=== PATIENT | female | born 2000 | race Caucasian/White ===

== ENCOUNTER 2021-05-22 14:51 | Outpatient (CLI) | payer OTHER ==
[2021-05-22 18:43] LABS: ALBUMIN 3.1 g/dL (3.2-5.5); ALBUMIN/GLOBULIN RATIO 0.8 (1.0-2.2); BILIRUBIN,TOTAL 0.9 mg/dL (0.2-1.0); CALCIUM 8.9 mg/dL (8.5-10.3); CREATININE 0.7 mg/dL (0.4-1.0); POTASSIUM 3.9 mmol/L (3.5-5.0)
== END 2021-05-22 14:52 | disposition home or self-care (01) ==
LOC: LAB.N 14:51
PROVIDERS: ATTEND Obstetrics & Gynecology
DX: L29.9 Pruritus, unspecified (principal)
CPT/HCPCS: 36415; 80053; 82239

== ENCOUNTER 2021-05-27 05:11 | Inpatient (IN) | payer OTHER ==
[2021-05-27] MEDS ORDERED: LACTATED RINGERS 1,000 ML ONE (05:36)
[2021-05-27] MEDS ORDERED: LACTATED RINGERS 1,000 ML IV ONE (05:40)
[2021-05-27] MEDS ORDERED: ONDANSETRON ODT 4 MG TABLET TL PRN (05:51)
[2021-05-27] MEDS ORDERED: LACTATED RINGERS 500 ML IV ONE (05:51)
[2021-05-27] MEDS ORDERED: ONDANSETRON 4 MG/2 ML VIAL IVP PRN (05:51)
[2021-05-27] MEDS ORDERED: SODIUM CHLORIDE FLUSH 0.9% 10 ML SYRINGE IVP PRN ×2 (05:51→08:49)
[2021-05-27] MEDS ORDERED: BETAMETHASONE 30 MG/5 ML VIAL IM ONE (05:51)
[2021-05-27 06:15] LABS: ALBUMIN 3.1 g/dL (3.2-5.5); ALBUMIN/GLOBULIN RATIO 0.8 (1.0-2.2); CALCIUM 8.6 mg/dL (8.5-10.3); CREATININE 0.6 mg/dL (0.4-1.0); POTASSIUM 3.9 mmol/L (3.5-5.0); TOTAL PROTEIN 6.8 g/dL (6.7-8.2)
[2021-05-27 06:27] LABS: BASOPHILS % (AUTO) 0.3 %; EOSINOPHILS % (AUTO) 0.4 %; HCT - HEMATOCRIT 34.3 % (37.0-47.0); LYMPHOCYTES # (AUTO) 1.3 10^3/uL (1.5-3.5); LYMPHOCYTES % (AUTO) 12.2 %; MEAN CORPUSCULAR HEMOGLOBIN 32.4 pg (27.0-31.0); MEAN CORPUSCULAR VOLUME 92.7 fL (81.0-99.0); MEAN PLATELET VOLUME 10.3 fL (7.9-10.8); MONOCYTES # (AUTO) 0.6 10^3/uL (0.0-1.0); MONOCYTES % (AUTO) 5.5 %; NEUTROPHILS # (AUTO) 8.5 10^3/uL (1.5-6.6); NEUTROPHILS % (AUTO) 80.3 %; PLT - PLATELET COUNT 227 10^3/uL (130-450); RED CELL DISTRIBUTION WIDTH 12.4 % (12.0-15.0); WHITE BLOOD COUNT 10.6 x10^3/uL (4.8-10.8)
--- NOTE | 2021-05-27 06:48 | HISTORY & PHYSICAL EXAMINATION ---
Admit History - Visit Reason Visit Reason: Contractions, Bleeding - mild - : 1 Parity: 0 Care: positive: Other Complications This : positive: Other (shortened cervix, cholestasis of ) - Mother's Labs Mother's Blood Type: positive: O Mother's RH: positive: Positive GBS: positive: Other (pending) Rubella Status: positive: Immune - Other Maternal History Other Maternal History: ID: Patient is a 20 yo at 34+6 wga here with contractions and vaginal bleeding also with new dx of cholestasis of , now with cervical change. HPI: Dating is by LMP at 16 weeks us. Patient reports that contractions started at approximately 11:00 am yesterday am. She contacted the presentation specialist provider at about 4:00 reporting worsening c ramping and passage of several small clots. No active/patricia bleeding. No LOF. No recent intercourse. She reported pruritus at her 05/15/21 visit and Patient was a recent transfer of care to [facility] with first and only visit on 05/15/21. [facility] was [facility]) and then at [facility] before transferring to [facility]. At her 32 week visit, she reported pruritus and BA and LFTs were sent. BA returned elevated at 135 and ALT and ALST were also elevated at 155 and 88. Ursodiol not started prior to presentation as BA results were not yet fully processed. Glucose 105. Denies hx of HSV. GBS collected at intake. No prior pregnancies. Pap wnl 04/03/21 Menarche 13 , menses Q28-30. PNC: DATING: LMP 09/25/20 --> CHIOMA 07/02/21 US on 01/16/21 at 16+3 wga gives CHIOMA 04/30/21. cwd LMP: 09/25/2020 CHIOMA by LMP: 07/02/2021 Ultrasound on 01/16/2021 at 16w 3d gives CHIOMA 06/30/2021 c/w LMP. FINAL CHIOMA: 07/02/2021 O+/rubella non-immune Genetic testing: CF, SMA, QUAD neg HepBsAg neg HepC Ab neg HIV neg GCCT neg/neg VZV 371 FAS on 03/15/21; EFW 749g/62nd%; 3VC; anterior placenta; LEXIE normal. CL 3.4 Intracranial contents not well visualized. -Follow-up 04/03/2021: Intracranial structures including lateral ventricles and posterior fossa appears normal for gestational age. U-shaped cervical funneling and cervix at the lower end of normal." CL 2.3 Referral to M; Dr. Pedersen spoke with ordering provider Dr. Damian - consult not indicated. Glucola: 01/16/2021 A1c 4.7%, Glucola 102 Flu: received at [facility] Tdap: given 05/15/21 COVID: Moderna dose #1 02/05/2021 #2 03/05/21 per patient report GBS @36w: COLLECTED/PENDING HSV: Denies in self or partner. Breast pump rx: not needed, given previously MOD: anticipate ; motivated to exclusive BF PP contraception: Declines need for control. Pap: WNL 04/12/2020 PMH: none PSH: none SOC HX: Lives in [place]- originally from [place] [employer] [place] deployed in [facility] No OZIEL FAM HX: Mother with hypothyroidism and GF with lung ca ROS: As per HPI, otherwise remaining systems negative PE: VS: 97/57 81 100% RA GEN: NAD HEAD: NCAT EYES: No scleral icterus or conjunctival injection CV: RR RESP: normal effort ABD: gravid, S&NT/ND. No RUQ TTP PSYCH: appropriate affect NEURO: alert and oriented, normal gait and coordination EXT: WWP APPLICATION SUPPORT MANAGER: NEFG, NL BSUMA, no lesions or abnormal discharge -scant dark blood on collection swabs SVE closed/30/-1 per RN exam at 5:17 am 3/90/-1 per RN exam at 7:00 Vertex with LEXIE 11.1 by BSUS EFM at presentation 165 mod debra 15x15 accels EFM at 7:35 145 mod debra 15x15 accels A/P: Patient is a 20 yo at 34+6 wga here with labor with new dx of cholestasis of LABOR: Rapid change from closed to 3 cm within 1.5 hours -BMZ 12 mg IM x1 given at 6:05 -LR bolus 500 cc x1 -Terbutaline 25 mcg SQ given for transport -GBS collected and ampicillin given for GBS ppx given unknown status -GCCT and vaginitis panel pending FWB: vertex, cat I tracing, GBS pending - tachycardia resolve with fluid bolus; now with Cat I tracing -Due for repeat BMZ at 6:05 on 05/28/21; if possible -Ampicillin intiated for GBS ppx CHOLESTASIS OF : Newly diagnosed with review of labs this am -AST and ALT stable, but more than twice normal on today's labs 05/22/21 AST 88 (10-42) ALT 155 (10-60) Total BA 135 (0-19) Glucose 105 05/27/21 AST 74 (10-42) ALT 152 (10-60) Glucose 93 -Ursodiol 500 mg po x1 given at 7:18 am DISPO: Transfer of care to accepting provider, Dr. Drea Leung at [facility] for NICU support Air transport Meds/Allgy - Allergies Allergies/Adverse Reactions: Allergies Allergy/AdvReac Type Severity Reaction Status Date / Time No Known Drug Allergies Allergy Verified 05/27/21 07:19 Physical - Abdominal Exam Vital Signs: Temp Pulse Resp BP Pulse Ox 98.1 F 75 18 98/60 100 05/27/21 05:46 05/27/21 06:23 05/27/21 06:23 05/27/21 06:23 05/27/21 06:23
[2021-05-27] MEDS ORDERED: AMPICILLIN 2 GM in SODIUM CHLORIDE 0.9% MINIBAG 100 ML IV ONE ×2 (06:49→06:55)
[2021-05-27] MEDS: TERBUTALINE 1 MG/ML VIAL SUBQ ONE ×2 (06:52→08:24)
[2021-05-27] MEDS ORDERED: TERBUTALINE 1 MG/ML VIAL SUBQ ONE (06:56)
[2021-05-27 08:45] LABS: BACTERIAL VAGINOSIS DNA NEGATIVE (NEGATIVE); CANDIDA GLABRATA DNA NEGATIVE (NEGATIVE); CANDIDA GROUP DNA NEGATIVE (NEGATIVE); CANDIDA KRUSEI DNA NEGATIVE (NEGATIVE); TRICHOMONAS VAGINALIS DNA NEGATIVE (NEGATIVE)
[2021-05-27] MEDS ORDERED: NIFEdipine 10 MG CAPSULE PO PRN (08:49)
[2021-05-27] MEDS ORDERED: TRANEXAMIC ACID IN NACL 1,000 MG/100 ML BAG IV PRN (08:49)
[2021-05-27] MEDS ORDERED: CARBOPROST TROMETHAMINE 250 MCG/ML AMP IM PRN (08:49)
[2021-05-27] MEDS ORDERED: LIDOCAINE-MPF 1% 30 ML VIAL ID PRN (08:49)
[2021-05-27] MEDS ORDERED: hydrALAZINE INJ 20 MG/ML VIAL IVP PRN ×2 (08:49)
[2021-05-27] MEDS ORDERED: OXYTOCIN 10 UNIT/ML VIAL IM PRN (08:49)
[2021-05-27] MEDS ORDERED: LABETALOL 20 MG/4 ML SYRINGE IVP PRN ×3 (08:49)
[2021-05-27] MEDS ORDERED: miSOPROStoL 200 MCG TABLET BC PRN (08:49)
[2021-05-27] MEDS ORDERED: OXYTOCIN/SODIUM CHLORIDE 500 ML IV PRN (08:49)
[2021-05-27] MEDS ORDERED: METHYLERGONOVINE 0.2 MG/ML VIAL IM PRN (08:49)
[2021-05-27] MEDS ORDERED: SODIUM CHLORIDE FLUSH 0.9% 10 ML SYRINGE IVP SCH (09:00)
[2021-05-27] MEDS ORDERED: ACETAMINOPHEN 325 MG TABLET PO SCH (09:00)
[2021-05-27] MEDS: LACTATED RINGERS 1,000 ML IV SCH ×2 (11:02→19:30)
[2021-05-27] MEDS: AMPICILLIN 1 GM in SODIUM CHLORIDE 0.9% MINIBAG 100 ML IV SCH ×4 (11:02→18:56)
--- NOTE | 2021-05-27 18:23 | PROVIDER PROGRESS NOTE ---
Subjective - Prog Note Date Prog Note Date: 05/27/21 Prog Note Time: 11:30 - Subjective Subjective: Contractions have slowed SVE 5-6/90/posterior/-1 station Head is not well applied to cervix. No significant progress Patient has received ampicillin x2 for GBS ppx EFM 135 mod debra 15x15 accels no decels TOCO: intermittent A?P: 20 yo at 34+6 wga with PTL and advanced cervical dilation Cat I tracing Desires unmedicated Cont with inpatient care Objective - Vital Signs/Intake & Output Intake & Output: Intake & Output 05/24/21 05/25/21 05/26/21 05/27/21 23:59 23:59 23:59 23:59 Intake Total 1300 Balance 1300 - Lab Results Fish Bones: 05/27/21 06:20 05/27/21 05:45 Other Labs: Lab Results x24hrs 05/27/21 05/27/21 05/27/21 Range/Units 06:20 06:03 05:45 WBC 10.6 (4.8-10.8) x10^3/uL RBC 3.70 L (4.20-5.40) 10^6/uL Hgb 12.0 (12.0-16.0) g/dL Hct 34.3 L (37.0-47.0) % MCV 92.7 (81.0-99.0) fL MCH 32.4 H (27.0-31.0) pg MCHC 35.0 (32.0-36.0) g/dL RDW 12.4 (12.0-15.0) % Plt Count 227 (130-450) 10^3/uL MPV 10.3 (7.9-10.8) fL Neut # (Auto) 8.5 H (1.5-6.6) 10^3/uL Lymph # (Auto) 1.3 L (1.5-3.5) 10^3/uL [place] # (Auto) 0.6 (0.0-1.0) 10^3/uL Eos # (Auto) 0.0 (0.0-0.7) 10^3/uL Baso # (Auto) 0.0 (0.0-0.1) 10^3/uL Absolute Nucleated RBC 0.00 x10^3/uL Nucleated RBC % 0.0 /100WBC Sodium 131 L (135-145) mmol/L Potassium 3.9 (3.5-5.0) mmol/L Chloride 102 (101-111) mmol/L Carbon Dioxide 18 L (21-32) mmol/L Anion Gap 11.0 (6-13) BUN 9 (6-20) mg/dL Creatinine 0.6 (0.4-1.0) mg/dL Estimated GFR (MDRD) 125 (>89) Glucose 93 (70-100) mg/dL Calcium 8.6 (8.5-10.3) mg/dL Total Bilirubin 1.0 (0.2-1.0) mg/dL AST 74 H (10-42) IU/L ALT 152 H (10-60) IU/L Alkaline Phosphatase 238 H (42-121) IU/L Total Protein 6.8 (6.7-8.2) g/dL Albumin 3.1 L (3.2-5.5) g/dL Globulin 3.7 (2.1-4.2) g/dL Albumin/Globulin Ratio 0.8 L (1.0-2.2) C. glabrata (PCR) NEGATIVE (NEGATIVE) C. krusei (PCR) NEGATIVE (NEGATIVE) Ebony species DNA NEGATIVE (NEGATIVE) T. vaginalis (PCR) NEGATIVE (NEGATIVE) Bact Vaginosis (PCR) NEGATIVE (NEGATIVE)
--- NOTE | 2021-05-27 18:25 | PROVIDER PROGRESS NOTE ---
Subjective - Prog Note Date Prog Note Date: 05/27/21 Prog Note Time: 18:23 - Subjective Subjective: Patient reports feeling more pressure and is getting more uncomfortable [id number] mod debra 15x15 accels no decels TOCO; irreg Cat I tracing SVE /-1/BBOW Head well applied to cervix with cervix midline. Cervical change progressing Cont to anticipate Pediatrics aware Objective - Vital Signs/Intake & Output Intake & Output: Intake & Output 05/24/21 05/25/21 05/26/21 05/27/21 23:59 23:59 23:59 23:59 Intake Total 1300 Balance 1300 - Lab Results Fish Bones: 05/27/21 06:20 05/27/21 05:45 Other Labs: Lab Results x24hrs 05/27/21 05/27/21 05/27/21 Range/Units 06:20 06:03 05:45 WBC 10.6 (4.8-10.8) x10^3/uL RBC 3.70 L (4.20-5.40) 10^6/uL Hgb 12.0 (12.0-16.0) g/dL Hct 34.3 L (37.0-47.0) % MCV 92.7 (81.0-99.0) fL MCH 32.4 H (27.0-31.0) pg MCHC 35.0 (32.0-36.0) g/dL RDW 12.4 (12.0-15.0) % Plt Count 227 (130-450) 10^3/uL MPV 10.3 (7.9-10.8) fL Neut # (Auto) 8.5 H (1.5-6.6) 10^3/uL Lymph # (Auto) 1.3 L (1.5-3.5) 10^3/uL [place] # (Auto) 0.6 (0.0-1.0) 10^3/uL Eos # (Auto) 0.0 (0.0-0.7) 10^3/uL Baso # (Auto) 0.0 (0.0-0.1) 10^3/uL Absolute Nucleated RBC 0.00 x10^3/uL Nucleated RBC % 0.0 /100WBC Sodium 131 L (135-145) mmol/L Potassium 3.9 (3.5-5.0) mmol/L Chloride 102 (101-111) mmol/L Carbon Dioxide 18 L (21-32) mmol/L Anion Gap 11.0 (6-13) BUN 9 (6-20) mg/dL Creatinine 0.6 (0.4-1.0) mg/dL Estimated GFR (MDRD) 125 (>89) Glucose 93 (70-100) mg/dL Calcium 8.6 (8.5-10.3) mg/dL Total Bilirubin 1.0 (0.2-1.0) mg/dL AST 74 H (10-42) IU/L ALT 152 H (10-60) IU/L Alkaline Phosphatase 238 H (42-121) IU/L Total Protein 6.8 (6.7-8.2) g/dL Albumin 3.1 L (3.2-5.5) g/dL Globulin 3.7 (2.1-4.2) g/dL Albumin/Globulin Ratio 0.8 L (1.0-2.2) C. glabrata (PCR) NEGATIVE (NEGATIVE) C. krusei (PCR) NEGATIVE (NEGATIVE) Ebony species DNA NEGATIVE (NEGATIVE) T. vaginalis (PCR) NEGATIVE (NEGATIVE) Bact Vaginosis (PCR) NEGATIVE (NEGATIVE)
--- NOTE | 2021-05-27 19:30 | PROVIDER PROGRESS NOTE ---
Subjective - Prog Note Date Prog Note Date: 05/27/21 Prog Note Time: 19:29 - Subjective Subjective: Feeling pressure. SVE 6/C/0 Increase in station Cat I tracing Getting in shower for pain management Objective - Vital Signs/Intake & Output Intake & Output: Intake & Output 05/24/21 05/25/21 05/26/21 05/27/21 23:59 23:59 23:59 23:59 Intake Total 1400 Balance 1400 - Lab Results Fish Bones: 05/27/21 06:20 05/27/21 05:45 Other Labs: Lab Results x24hrs 05/27/21 05/27/21 05/27/21 Range/Units 06:20 06:03 05:45 WBC 10.6 (4.8-10.8) x10^3/uL RBC 3.70 L (4.20-5.40) 10^6/uL Hgb 12.0 (12.0-16.0) g/dL Hct 34.3 L (37.0-47.0) % MCV 92.7 (81.0-99.0) fL MCH 32.4 H (27.0-31.0) pg MCHC 35.0 (32.0-36.0) g/dL RDW 12.4 (12.0-15.0) % Plt Count 227 (130-450) 10^3/uL MPV 10.3 (7.9-10.8) fL Neut # (Auto) 8.5 H (1.5-6.6) 10^3/uL Lymph # (Auto) 1.3 L (1.5-3.5) 10^3/uL [place] # (Auto) 0.6 (0.0-1.0) 10^3/uL Eos # (Auto) 0.0 (0.0-0.7) 10^3/uL Baso # (Auto) 0.0 (0.0-0.1) 10^3/uL Absolute Nucleated RBC 0.00 x10^3/uL Nucleated RBC % 0.0 /100WBC Sodium 131 L (135-145) mmol/L Potassium 3.9 (3.5-5.0) mmol/L Chloride 102 (101-111) mmol/L Carbon Dioxide 18 L (21-32) mmol/L Anion Gap 11.0 (6-13) BUN 9 (6-20) mg/dL Creatinine 0.6 (0.4-1.0) mg/dL Estimated GFR (MDRD) 125 (>89) Glucose 93 (70-100) mg/dL Calcium 8.6 (8.5-10.3) mg/dL Total Bilirubin 1.0 (0.2-1.0) mg/dL AST 74 H (10-42) IU/L ALT 152 H (10-60) IU/L Alkaline Phosphatase 238 H (42-121) IU/L Total Protein 6.8 (6.7-8.2) g/dL Albumin 3.1 L (3.2-5.5) g/dL Globulin 3.7 (2.1-4.2) g/dL Albumin/Globulin Ratio 0.8 L (1.0-2.2) C. glabrata (PCR) NEGATIVE (NEGATIVE) C. krusei (PCR) NEGATIVE (NEGATIVE) Ebony species DNA NEGATIVE (NEGATIVE) T. vaginalis (PCR) NEGATIVE (NEGATIVE) Bact Vaginosis (PCR) NEGATIVE (NEGATIVE)
[2021-05-27 21:58] LABS: CHLAMYDIA TRACHOMATIS DNA NEGATIVE (NEGATIVE); NEISSERIA GONORRHOEAE DNA NEGATIVE (NEGATIVE); TRICHOMONAS VAGINALIS DNA NEGATIVE (NEGATIVE)
[2021-05-27] MEDS: OXYTOCIN/SODIUM CHLORIDE 500 ML IV PRN ×2 (22:57→23:30)
[2021-05-27] MEDS ORDERED: KETOROLAC 15 MG/ML VIAL IVP STA (23:15)
[2021-05-27] MEDS ORDERED: SIMETHICONE CHEW 80 MG TABLET PO PRN (23:41)
[2021-05-27] MEDS ORDERED: DOCUSATE SODIUM 100 MG CAPSULE PO PRN (23:41)
[2021-05-27] MEDS ORDERED: HYDROCORTISONE 1% CREAM 28 GM TUBE PR PRN (23:41)
[2021-05-27] MEDS: ACETAMINOPHEN 500 MG TABLET PO SCH (23:45)
[2021-05-27] MEDS: IBUPROFEN 600 MG TABLET PO SCH (23:45)
[2021-05-27] MEDS ORDERED: LACTATED RINGERS 1,000 ML IV SCH (23:45)
--- NOTE | 2021-05-27 23:45 | DELIVERY NOTE ---
Delivery Note - Labor Labor: positive: Spontaneous - Delivery Method Delivery Method: positive: Spontaneous vaginal delivery - Nuchal Cord Nuchal Cord: positive: None - Anesthetic Anesthetic Type: Anesthetic: positive: Lidocaine - 1% plain - Amniotic Fluid Description Amniotic Fluid Description: positive: Moderate meconium - Episiotomy Type Episiotomy Type: positive: None - Laceration Laceration: positive: 1st degree, Labial - Suture Suture Type: positive: Vicryl Suture Size: positive: 3-0 - Delivery Outcome Delivery Outcome: positive: Livebirth - : positive: Placed in direct skin contact with mother, Bulb syringe, Warmed, [place] used [place] sex: positive: Male - Cord Cord: positive: 3 vessels - Placenta Placenta: positive: Intact, Spontaneous - Estimated Blood Loss Estimated Blood Loss (in cc): 200 - Post Delivery Events Post Delivery Events: positive: No post delivery events - Delivery Comments (Free Text/Narrative) Delivery Comments (Free Text/Narrative): STAGE I: Patient is a 20 yo admitted at 34+6 wga with contractions and vaginal bleeding also with new dx of cholestasis of . Patient reports that contractions started at approximately 11:00 am 12/11/09 am. She contacted the damage prevention coordinator provider at about 4:00 reporting worsening cramping and passage of several small clots. At admission, initial SVE was closed/30/-1. After about 90 minutes, she progressed to 3/80/-1. Arrangements were made for transport and two doses of terbutaline were administered. She progressed to 5-6/C/-1/posterior at the time of the arrival of the transport team. Air transport was contraindicated for weather concerns. Patient was deemed too far advanced for ground transport via ferry. Decision was made to delay transport until after delivery. GBS was collected and ampicillin was administered for GBS prophylaxis. Four doses were administered prior to delivery. She was given a single dose of betamethasone at 6:50 am. Labor slowed and no augmentation was given. She underwent artificail rupture of membranes at 22:24; moderate meconium noted. She was was deemed completed at 22:25. She was given two doses of ursodiol for BA 135 and elevated LFTs. Category I tracing throughout Stage I labor. STAGE II: Patient started pushing at 22;32. She pushed well to deliver a viable male infant from ALEX presentation with an compound presentation of the right hand, left shoulder anterior. Shoulders delivered without difficulty. No nuchal cord. was dleivered to maternal chest. Cord clamping was delayed for alightly more than 1 minute. It was then clamped x2 and cut by grandmother. Apgars were 8/9 and weight was 2715g. Cord gases were collected and are pending. Pediatrics and RT were present at delivery. STAGE III: Placenta delivered spontaneously at 23:00. It was examined and found to be intact. Perineum was inspected and patient was ntoed to have a 1st degree midline laceration. Laceration was treated with 1% lidocaine and repaired in the usual sterile fashion with 3-0 Vicryl. Good hemostasis was noted. EBL 200 cc.
[2021-05-28] MEDS: ACETAMINOPHEN 500 MG TABLET PO SCH (06:06)
[2021-05-28] MEDS: IBUPROFEN 600 MG TABLET PO SCH (08:34)
--- NOTE | 2021-05-28 08:48 | Discharge Plan ---
Discharge Plan Problem Reviewed?: Yes Disposition: Home, Self Care Condition: Good Prescriptions: Acetaminophen [Acetaminophen Extra Strength] 1,000 mg PO Q8H PRN #60 tablet PRN Reason: Pain Docusate Sodium 100Mg Capsule [Colace 100Mg Capsule] 100 - 200 mg PO BID PRN #60 cap PRN Reason: Constipation Ibuprofen [Motrin] 600 mg PO Q6H PRN #60 tab PRN Reason: Pain Diet: Regular Activity Restrictions: Additional Comments (Nothing in the vagina for 6 weeks: No intercourse, tampons, douching Call for: -Fever greater than 100.5 - Pain that does not improve with pain medication -Heavy bleeding in which you are soaking a pad an hour for 2 hours in a row No tub baths or hot tubs for 4 weeks) Shower Restrictions: Yes (ok to shower; no tub baths for 4 weeks) Additional Instructions or Follow Up instructions: Ibuprofen 600 mg by mouth every 6 hours as needed for pain Acetaminophen 500-1000 mg by mouth every 8 hours as needed for pain Docusate 100-200 mg by mouth twice a day as needed for constipation No Smoking: If you smoke, Please STOP! Call for help. Follow-up with: Moraima Brown MD [Provider Admit Priv/Credential] -
[2021-05-28] MEDS ORDERED: MEASLES,MUMPS & RUBELLA VACC 0.5 ML VIAL SUBQ ONE (08:50)
--- NOTE | 2021-05-28 08:51 | DISCHARGE SUMMARY ---
Discharge Summary Admit Date: 05/27/21 Discharge Date: 05/28/21 Discharging Provider: Dylan Condition at Discharge: Good Discharge Disposition: 01 Home, Self Care - DIAGNOSES Admission Diagnoses: IUP at 34+6 wga labor Cholestasis of Rubella non-immune Discharge Diagnoses with Status of Each Condition: Same and delivery of gestation - HPI History of Present Illness: Patient is a 20 yo at 34+6 wga here with contractions and vaginal bleeding also with new dx of cholestasis of , now with cervical change. Dating is by LMP at 16 weeks us. Patient reports that contractions started at approximately 11:00 am 05/26/21 am. She contacted the astronomy teacher provider at about 4:00 am on 05/27/21 reporting worsening cramping and passage of several small clots. No active/patricia bleeding. No LOF. No recent intercourse. At her 32 week visit, she reported pruritus and BA and LFTs were sent. BA ret urned elevated at 135 and ALT and ALST were also elevated at 155 and 88. Ursodiol not started prior to presentation as BA results were not yet fully processed. Glucose 105. Patient was a recent transfer of care to [facility] with first and only visit on 05/15/21. [facility] and then at [facility] before transferring to [facility]. Denies hx of HSV. GBS collected at intake. No prior pregnancies. Pap wnl 04/03/21 Menarche 13 , menses Q28-30. PNC: DATING: LMP 09/25/20 --> CHIOMA 07/02/21 US on 01/16/21 at 16+3 wga gives CHIOMA 04/30/21. cwd LMP: 09/25/2020 CHIOMA by LMP: 07/02/2021 Ultrasound on 01/16/2021 at 16w 3d gives CHIOMA 06/30/2021 c/w LMP. FINAL CHIOMA: 07/02/2021 O+/rubella non-immune Genetic testing: CF, SMA, QUAD neg HepBsAg neg HepC Ab neg HIV neg GCCT neg/neg VZV 371 FAS on 03/15/21; EFW 749g/62nd%; 3VC; anterior placenta; LEXIE normal. CL 3.4 Intracranial contents not well visualized. -Follow-up 04/03/2021: Intracranial structures including lateral ventricles and posterior fossa appears normal for gestational age. U-shaped cervical funneling and cervix at the lower end of normal." CL 2.3 Referral to [facility]; Dr. Pedersen spoke with ordering provider Dr. Damian - consult not indicated. Glucola: 01/16/2021 A1c 4.7%, Glucola 102 Flu: received at [facility] Tdap: given 05/15/21 COVID: Moderna dose #1 02/05/2021 #2 03/05/21 per patient report GBS @36w: COLLECTED/PENDING HSV: Denies in self or partner. Breast pump rx: not needed, given previously MOD: anticipate ; motivated to exclusive BF PP contraception: Declines need for control. Pap: WNL 04/12/2020 - HOSPITAL COURSE Hospital Course: Patient presented as per HI above. SVE closed/30/-1 per RN exam at 5:17 am and then was 3/90/-1 per RN exam at 7:00 Confirmed vertex with LEXIE 11.1 by BSUS EFM at presentation 165 mod debra 15x15 accels EFM at 7:35 145 mod debra 15x15 accels Given rapid change from closed to 3 cm within 1.5 hours, the following actions were taken: -BMZ 12 mg IM x1 given at 6:05 -LR bolus 500 cc x1 -Terbutaline 25 mcg SQ given for transport -GBS collected and ampicillin given for GBS ppx given unknown status -GCCT and vaginitis panel collected and pending Air transport not available 2/2 weather concerns. Changing cervix too rapidly to safely transport via ground. SVE at 8:20 5/C/-1 Contacted [facility] to update that patient will not transfer but to expect transport Updating pediatric team. Converted to in-patient status FWB: Tachycardic at presetentation. - tachycardia resolve with fluid bolus; followed with Cat I tracing -Due for repeat BMZ at 6:05 on 05/28/21; if possible -Ampicillin intiated for GBS ppx CHOLESTASIS OF : Newly diagnosed with review of labs 05/27/21 am -AST and ALT stable, but more than twice normal on today's labs 05/22/21 AST 88 (10-42) ALT 155 (10-60) Total BA 135 (0-19) Glucose 105 05/27/21 AST 74 (10-42) ALT 152 (10-60) Glucose 93 -Ursodiol 500 mg po x1 given at 7:18 am DELIVERY PROCESS: STAGE I: Patient is a 20 yo admitted at 34+6 wga with contractions and vaginal bleeding also with new dx of cholestasis of . Patient reports that contractions started at approximately 11:00 am 05/26/21 am. She contacted the astronomy teacher provider at about 4:00 reporting worsening cramping and passage of several small clots. At admission, initial SVE was closed/30/-1. After about 90 minutes, she progressed to 3/80/-1. Arrangements were made for transport and two doses of terbutaline were administered. She progressed to 5-6/C/-1/posterior at the time of the arrival of the transport team. Air transport was contraindicated for weather concerns. Patient was deemed too far advanced for ground transport via ferry. Decision was made to delay transport until after delivery. GBS was collected and ampicillin was administered for GBS prophylaxis. Four doses were administered prior to delivery. She was given a single dose of betamethasone at 6:50 am. Labor slowed and no augmentation was given. She underwent artificail rupture of membranes at 22:24; moderate meconium noted. She was was deemed completed at 22:25. She was given two doses of u rsodiol for BA 135 and elevated LFTs. Category I tracing throughout Stage I labor. STAGE II: Patient started pushing at 22;32. She pushed well to deliver a viable male infant from ALEX presentation with an compound presentation of the right hand, left shoulder anterior. Shoulders delivered without difficulty. No nuchal cord. Infant was dleivered to maternal chest. Cord clamping was delayed for s lightly more than 1 minute. It was then clamped x2 and cut by grandmother. Apgars were 8/9 and weight was 2715g. Cord gases were collected and are pending. Pediatrics and RT were present at delivery. STAGE III: Placenta delivered spontaneously at 23:00. It was examined and found to be intact. Perineum was inspected and patient was ntoed to have a 1st degree midline laceration. Laceration was treated with 1% lidocaine and repaired in the usual sterile fashion with 3-0 Vicryl. Good hemostasis was noted. EBL 200 cc. Infant was LGA and overall, did well. Was eventually transported to [facility] for NICU support given early gestational age. Patient did well in her course. By PPD#1, she was up and ambulating, tolerating po, and pain was such that medications were not requested. Rubella non-immune and MMR was administered. Discharged to home on PPD#1. LABOR PROVIDER: DYLAN DELIVERING PROVIDER: DYLAN APGARS: 8/9 BIRTHWEIGHT 2715g - ALLERGIES Allergies/Adverse Reactions: Allergies Allergy/AdvReac Type Severity Reaction Status Date / Time No Known Drug Allergies Allergy Verified 05/27/21 07:19 - MEDICATIONS Home Medications: Ambulatory Orders Medication Instructions Recorded Confirmed Acetaminophen [Acetaminophen Extra 1,000 mg PO Q8H PRN #60 tablet 05/28/21 Strength] Docusate Sodium 100Mg Capsule 100 - 200 mg PO BID PRN #60 cap 05/28/21 [Colace 100Mg Capsule] Ibuprofen [Motrin] 600 mg PO Q6H PRN #60 tab 05/28/21 - PHYSICAL EXAM AT DISCHARGE General Appearance: positive: No acute distress Neck: positive: Nml inspection Respiratory: positive: No respiratory distress Cardiovascular: positive: Regular rate & rhythm Abdomen: positive: Non-tender, Other (S&NT/ND) Skin: positive: Color nml Extremities: positive: Non-tender, No pedal edema Neurologic/Psychiatric: positive: Oriented x3 - LABS Result Diagrams: 05/27/21 06:20 05/27/21 05:45 - FOLLOW UP Follow Up: [address] Brown - TIME SPENT Time Spent in Discharge (Minutes): 30
[2021-05-28 10:44] VITALS: BP 120/56
[2021-05-29 09:55] LABS: HEPATITIS B SURFACE ANTIGEN NON-REACTIVE (NON-REACTIVE); HEPATITIS C ANTIBODY NON-REACTIVE (NON-REACTIVE)
[2021-05-29 12:47] LABS: HIV AG/AB 4TH GEN NON-REACTIVE (NON-REACTIVE)
--- NOTE | 2021-06-06 03:40 | Labor Flowsheet ---
Labor Flowsheet Datetime Report Generated by CPN: 06/06/2021 03:40 Datetime: 05/28/2021 10:21 VITAL SIGNS NBP Sys/Lennie/Mean (mmHg): 121 : 45 : 65 Pulse: 105 Datetime: 05/28/2021 00:16 Respirations: 17 Datetime: 05/28/2021 00:01 Pain Relief Measures: Pain Medication Given Datetime: 05/27/2021 23:39 SpO2 (%): 100 PAIN Pain Scale: 3 Pain Presence: Intermittent Pain Type: Cramping Datetime: 05/27/2021 23:15 Stage of : Recovery Datetime: 05/27/2021 23:07 LaborFlag: Labor Datetime: 05/27/2021 22:56 UTERINE ACTIVITY Monitor Mode: External Frequency (min): 2-3 Quality: Strong Duration (sec): 50-80 Pattern: Normal: <= 5 Contractions in 10 Minutes Resting Tone (Palpate): Relaxed ASSESSMENT A Monitor Mode: Telemetry FHR Baseline Rate : 150 Variability: Moderate 6-25 bpm Accelerations: 15X15 Decelerations: Early; Late; Variable Category: Category II Datetime: 05/27/2021 22:43 Pushing Progress: Descent with Pushing; Pushing Effectively with Contractions Datetime: 05/27/2021 22:42 Temperature (C): 36.5 Datetime: 05/27/2021 22:39 Monitor Interventions for UA: Grill Adjusted Datetime: 05/27/2021 22:37 Pushing Position: Pushing with Contractions Datetime: 05/27/2021 22:31 STAGE 2 Pushing: Coached on Pushing Stage 2 Comments: MD providing pushing education, pt verbalizes understanding Datetime: 05/27/2021 22:25 Pain Coping: Breathing Through Contractions Pain Assessment Comments: coping well, breathing controlled VAGINAL EXAM Dilatation (cm): 10.0 Effacement (%): 100 Station: 2 Exam by: Dr Altamirano Vaginal Bleeding: Normal Show Datetime: 05/27/2021 22:24 Membrane Status: Ruptured Membranes Rupture Method: Artificial Amniotic Fluid Color: Light Meconium Amniotic Fluid Amount: Moderate Amniotic Fluid Odor: None Hygiene: Sonia Care; Underpad Changed Datetime: 05/27/2021 22:19 Communication Comments: Dr Altamirano returns to bedside, nursery nurses x2 at warmer Datetime: 05/27/2021 22:10 Patient Position/Activity: Left Lateral Comfort Measures: Family Support Datetime: 05/27/2021 22:08 I/O Interventions: Up to BR Patient Care Comments: pt emptying bladder Datetime: 05/27/2021 22:06 Cervix, Position: Anterior Vaginal Exam Comments: reducible anterior lip Datetime: 05/27/2021 22:04 COMMUNICATION Communication: Provider at Bedside Datetime: 05/27/2021 21:55 Medication Comments: ursodiol 500mg PO Datetime: 05/27/2021 21:44 Contraction Comments: abdomen palpates soft, toco referenced Datetime: 05/27/2021 21:32 Monitor Interventions for FHR: Ultrasound Adjusted Comments: maternal HR tracing, adjusted Datetime: 05/27/2021 21:16 Pain Location: Abdomen; Back Datetime: 05/27/2021 21:10 Maternal Comments: L hand IV infiltrated, removed, tip intact, ice applied to site PATIENT CARE IV/Blood Work: IV Started Datetime: 05/27/2021 20:00 FHR Baseline Changes: Tachycardia Datetime: 05/27/2021 19:42 Teaching Comments: educated on risk of overheating in tub and tachycardia, pt states she will exit bath in approx 20 minutes Datetime: 05/27/2021 19:32 MATERNAL ASSESSMENT Level of Consciousness: Alert DTR's/Clonus: DTRs 2+; No Clonus Headache: Denies Breath Sounds, Left: Clear and Equal Breath Sounds, Right: Clear and Equal Nausea/Vomiting: Denies RUQ Epigastric Pain: Denies ANESTHESIA Anesthesia Plans: None Datetime: 05/27/2021 19:24 TEACHING Instructional Method: Verbal; Patient Instructed; Verbalized Understanding Plan of Care: Plan of Care Discussed; Vaginal Delivery Unit Routine: Monitoring; Safety/Fall Risk Prevention Labor/Induction: Labor Stages; Activity Pain Management: Pain Scale/Goals; Comfort Measures Medications: Antibiotics Datetime: 05/27/2021 18:56 MEDICATIONS Antibiotics: Ampicillin IV 1 Gm Datetime: 05/27/2021 18:00 Provider Notified (Name): McSorley Datetime: 05/27/2021 15:36 Temperature Route: Oral Pain Goal: 7
== END 2021-05-28 10:30 | disposition home or self-care (01) | DRG 805 ==
LOC: WFO 05:11 → FBP 05:15 → WFO 08:47 → FBP 08:48
PROVIDERS: ADMIT Obstetrics & Gynecology; ATTEND Obstetrics & Gynecology
PROC: 10907ZC Drainage of Amniotic Fluid, Therapeutic from Products of Conception, Via Natural or Artificial Opening (ICD-10-PCS; principal; 2021-05-27)
PROC: 10E0XZZ Delivery of Products of Conception, External Approach (ICD-10-PCS; 2021-05-27)
PROC: 0UQMXZZ Repair Vulva, External Approach (ICD-10-PCS; 2021-05-27)
DX: O60.14X0 Preterm labor third trimester with preterm delivery third trimester, not applicable or unspecified (principal); K83.1 Obstruction of bile duct; Z37.0 Single live birth; O26.62 Liver and biliary tract disorders in childbirth; Z3A.34 34 weeks gestation of pregnancy; O70.0 First degree perineal laceration during delivery; O77.0 Labor and delivery complicated by meconium in amniotic fluid; O32.6XX0 Maternal care for compound presentation, not applicable or unspecified; O76 Abnormality in fetal heart rate and rhythm complicating labor and delivery
CPT/HCPCS: 80053; 85025; 86803; 87340; 87389; 87481; 87491; 87591; 87661; 87797; 87801; 99215; A9270; J7120; 86703

== ENCOUNTER 2023-05-13 08:00 | Outpatient (CLI) | payer OTHER ==
[2023-05-13 16:29] LABS: BILIRUBIN,URINE NEGATIVE (NEGATIVE); GLUCOSE, URINE (UA) NEGATIVE (NEGATIVE); KETONES,URINE (UA) NEGATIVE (NEGATIVE); LEUKOCYTE ESTERASE, URINE NEGATIVE (NEGATIVE); NITRITE,URINE NEGATIVE (NEGATIVE); OCCULT BLOOD,URINE NEGATIVE (NEGATIVE); PROTEIN,URINE NEGATIVE (NEGATIVE); UROBILINOGEN,URINE 0.2 (NORMAL) E.U./dL (NORMAL)
[2023-05-13 16:31] LABS: CLARITY,URINE CLEAR (CLEAR)
[2023-05-13 16:47] LABS: WBC,URINE 0-3 /HPF (0-5)
[2023-05-13 16:48] LABS: BACTERIA,URINE Rare /HPF (None Seen); MUCUS,URINE Few Strands; RBC,URINE None Seen /HPF (0-5); SQUAMOUS EPITHELIAL CELL,UR RARE Squamous (<= Few)
== END 2023-05-13 23:59 | disposition home or self-care (01) ==
LOC: LAB.WC 08:00
PROVIDERS: ATTEND Obstetrics & Gynecology
DX: Z34.80 Encounter for supervision of other normal pregnancy, unspecified trimester (principal)
CPT/HCPCS: 81001; 87086

== ENCOUNTER 2023-05-19 12:55 | Outpatient (CLI) | payer OTHER ==
[2023-05-19 18:04] LABS: BASOPHILS % (AUTO) 0.5 %; EOSINOPHILS # (AUTO) 0.1 10^3/uL (0.0-0.7); EOSINOPHILS % (AUTO) 0.9 %; HCT - HEMATOCRIT 33.3 % (37.0-47.0); HGB - HEMOGLOBIN 11.2 g/dL (12.0-16.0); LYMPHOCYTES # (AUTO) 1.9 10^3/uL (1.5-3.5); LYMPHOCYTES % (AUTO) 21.8 %; MEAN CORPUSCULAR HEMOGLOBIN 30.6 pg (27.0-31.0); MEAN CORPUSCULAR HGB CONC 33.6 g/dL (32.0-36.0); MEAN PLATELET VOLUME 10.2 fL (7.9-10.8); MONOCYTES # (AUTO) 0.5 10^3/uL (0.0-1.0); MONOCYTES % (AUTO) 5.5 %; NEUTROPHILS # (AUTO) 6.1 10^3/uL (1.5-6.6); PLT - PLATELET COUNT 309 10^3/uL (130-450); RED BLOOD COUNT 3.66 10^6/uL (4.20-5.40); RED CELL DISTRIBUTION WIDTH 13.3 % (12.0-15.0); WHITE BLOOD COUNT 8.6 x10^3/uL (4.8-10.8)
[2023-05-20 03:10] LABS: HBsAG SCREEN Negative (Negative)
[2023-05-20 06:10] LABS: HIV SCREEN 4TH GENERATION Non Reactive (Non Reactive); RPR Non Reactive (Non Reactive)
[2023-05-20 07:10] LABS: HCV AB Non Reactive (Non Reactive)
[2023-05-20 08:10] LABS: VARICELLA-ZOSTER AB IGG 426 index (Immune >165)
== END 2023-05-19 12:56 | disposition home or self-care (01) ==
LOC: LAB.N 12:55
PROVIDERS: ATTEND Obstetrics & Gynecology
DX: Z34.80 Encounter for supervision of other normal pregnancy, unspecified trimester (principal); Z36.89 Encounter for other specified antenatal screening
CPT/HCPCS: 36415; 85025; 86592; 86762; 86787; 86803; 86850; 86900; 86901; 87340; 87389

== ENCOUNTER 2023-05-21 16:26 | Outpatient (CLI) | payer OTHER ==
--- NOTE | 2023-05-22 10:03 | Ultrasound Report ---
PROCEDURE: OB First Trimester INDICATIONS: POSITIVE TEST OUTSIDE/PRIOR DATING DATA: Last menstrual period (LMP): Not provided. LMP-based estimated date of delivery (CHIOMA): 11/24/2023. First dating scan (date and location): 05/21/2023. Estimated date of delivery (CHIOMA) from first dating scan: 11/22/2023. TECHNIQUE: Real-time scanning was performed of the fetus and maternal pelvic organs, with image documentation. Transvaginal imaging declined by the patient. COMPARISON: None. FINDINGS: Single living intrauterine gestation is identified with estimated sonographic gestational age of approximately 13 weeks and 4 days based off crown-rump length measurement of approximately 7.4 cm. Heart rate: 160 bpm. Other: No perigestational fluid collection. Measurement variability in dating: +/- 4 weeks by LMP, +/- 7 days by mean sac diameter (use before 6 weeks gestation if crown-rump length not able to be measured), +/- 5 days by crown-rump length (6-12 weeks gestation). Maternal organs: Ovaries demonstrate presence of a left ovarian cyst. IMPRESSION: Single living intrauterine gestation with estimated sonographic gestational age of approximately 13 w eeks and 4 days based off crown-rump length measurement. Estimated date of delivery is approximately 11/22/2023 which measures concordantly with estimated date of delivery by last menstrual period of 2023. Reviewed by: Aly Huntley MD on 05/22/2023 10:02 AM PST Approved by: Aly Huntley MD on 05/22/2023 10:02 AM PST Station ID: [id number]
== END 2023-05-21 16:27 | disposition home or self-care (01) ==
LOC: DI 16:26
PROVIDERS: ATTEND Obstetrics & Gynecology
DX: Z34.80 Encounter for supervision of other normal pregnancy, unspecified trimester (principal)

== ENCOUNTER 2023-06-25 07:59 | Outpatient (CLI) | payer OTHER ==
[2023-06-27 21:16] LABS: AFP MOM 0.93 (.); AFP VALUE 46.7 ng/mL (.); DIA VALUE 152.47 pg/mL (.); DSR (BY AGE) 1 IN 1012 (.); DSR (SECOND TRIMESTER) 1 IN 10000 (.); GEST. AGE ON COLLECTION DATE 18.3 WEEKS (.); HCG MOM 0.66 (.); HCG VALUE 21145 mIU/mL (.); INSULIN DEP DIABETES No (.); MATERNAL AGE AT EDD 25.4 yr (.); MULTIPLE GESTATION No (.); OPEN SPINA BIFIDA RISK 1 IN 10000 (.); RACE Caucasian (.); RESULTS Report (.); TEST RESULTS *Screen Negative* (.); TRISOMY 18 RISK Not increased (.); UE3 MOM 1.01 (.); UE3 VALUE 1.66 ng/mL (.); WEIGHT 130 lbs (.)
== END 2023-06-25 08:00 | disposition home or self-care (01) ==
LOC: LAB.N 07:59
PROVIDERS: ATTEND Obstetrics & Gynecology
DX: Z34.80 Encounter for supervision of other normal pregnancy, unspecified trimester (principal)
CPT/HCPCS: 36415; 81511

== ENCOUNTER 2023-07-22 16:00 | Outpatient (CLI) | payer OTHER ==
--- NOTE | 2023-07-23 15:51 | Ultrasound Report ---
PROCEDURE: OB Anatomy Scan INDICATIONS: SUPERVISION OF NORMAL OUTSIDE/PRIOR DATING DATA: Last menstrual period (LMP): 02/17/2023. LMP-based estimated date of delivery (CHIOMA): 11/24/2023. First dating scan (date and location): 04/24/2023. Estimated date of delivery (CHIOMA) from first dating scan: 11/22/2023. The below data below was generated using the clinical CHIOMA of 11/24/2023 TECHNIQUE: Real-time scanning was performed of the fetus, with image documentation and biometric measurements. COMPARISON: OB ultrasound 05/21/2023 FINDINGS: General: A single living intrauterine gestation is present. Presentation: Breech Placenta: Placental position is posterior, without previa. Amniotic fluid index: 16.2 cm, within normal limits for gestational age. Largest pocket 4.1 cm heart rate: 132 beats per minute. Maternal cervical canal: 3.4 cm long; normal length is 2.5 cm or more. biometrics: Biparietal diameter: 5.3 cm 20 weeks 1 day 45th percentile Head circumference: 20.4 cm 20 weeks 4 days 55th percentile Abdominal circumference: 18.5 cm 23 weeks 2 days 79th percentile Femur length: 3.7 cm 21 weeks 6 days 31st percentile Estimated gestational age from initial scan: 22 weeks 1 day Composite gestational age from present scan: 22 weeks 2 days Estimated weight and percentile: 10/24/2019 2 g, 70th percentile Measurement variability in biometric dating: +/- 10 days from 12-20 weeks gestation, +/- 2 weeks from 20-30 weeks gestation, +/- 3 weeks at 30 weeks gestation or later. Anatomic survey: Neuro: Ventricles are normal at less than 10 mm. Cisterna magna is normal at 3-11 mm. Cerebellum i s normal in size and morphology. Nuchal skin fold: Normal at less than 6 mm between 14 and 20 weeks gestational age. Face: Nose and lips, facial profile are normal. Spine: No evidence for spina bifida. Heart: 4-chambered heart is present, with normal ventricular outflow tracts. There is stable. Trace free fluid adjacent to the pericardium. Diaphragm: Diaphragm is intact. Stomach: Left-sided stomach is present. Kidneys: No hydronephrosis. Normal is less than 5 mm in 2nd trimester, less than 7 mm in 3rd trimester. Cord: 3 vessel cord has orthotopic insertion. Bladder: Normal in size. Extremities: All 4 extremities are visualized. IMPRESSION: Single live intrauterine ultrasound gestational age of 20 weeks 2 days. Questionable appearance of trace pericardial fluid. Short interval follow-up is recommended. Reviewed by: Julissa Chairez MD on 07/23/2023 3:50 PM PST Approved by: Julissa Chairez MD on 07/23/2023 3:50 PM [facility] Station ID: [id number]
== END 2023-07-22 16:01 | disposition home or self-care (01) ==
LOC: DI 16:00
PROVIDERS: ATTEND Obstetrics & Gynecology
DX: Z34.82 Encounter for supervision of other normal pregnancy, second trimester (principal)

== ENCOUNTER 2023-08-04 14:32 | Outpatient (CLI) | payer OTHER ==
--- NOTE | 2023-08-04 18:01 | Ultrasound Report ---
PROCEDURE: OB Follow up INDICATIONS: SUPERVISION OF OUTSIDE/PRIOR DATING DATA: Last menstrual period (LMP): 02/17/2023. LMP-based estimated date of delivery (CHIOMA): 11/24/2023. First dating scan (date and location): 05/21/2023. Estimated date of delivery (CHIOMA) from first dating scan: 11/22/23. The below data below was generated using the working CHIOMA of 11/24/2023 TECHNIQUE: Real-time scanning was performed of the fetus, with image documentation. Endovaginal scanning: Not performed. COMPARISON: 05/21/2023, 07/22/2023. FINDINGS: General: A single living intrauterine gestation is present. Presentation: Vertex Placenta: Placental position is posterior, without previa. Amniotic fluid index: 18.2 cm, within normal limits for gestational age. heart rate: 143 beats per minute. Maternal cervical canal: 4.8 cm long; normal length is 2.5 cm or more. Estimated gestational age from initial scan: 24 weeks, 4 days. Other: There is interval decrease in amount of pericardial fluid compared to previous study. Trace am ount of fluid is seen near right ventricle. IMPRESSION: 1. Single live intrauterine gestation with fetus in vertex presentation. heart rate is 143 bpm. Normal amount of amniotic fluid. LEXIE gross 18.2 cm. 2. Interval decrease in amount of previously noted pericardial effusion. Continued ultrasound follow- up is recommended. Reviewed by: Milan Dean MD on 08/04/2023 5:59 PM PST Approved by: Milan Dean MD on 08/04/2023 5:59 PM PST Station ID: [id number]
== END 2023-08-04 14:33 | disposition home or self-care (01) ==
LOC: DI 14:32
PROVIDERS: ATTEND Obstetrics & Gynecology
DX: O35.8XX0 Maternal care for other (suspected) fetal abnormality and damage, not applicable or unspecified (principal); Z3A.24 24 weeks gestation of pregnancy

== ENCOUNTER 2023-09-04 10:01 | Outpatient (CLI) | payer OTHER ==
[2023-09-04 18:02] LABS: HCT - HEMATOCRIT 34.6 % (37.0-47.0); HGB - HEMOGLOBIN 11.8 g/dL (12.0-16.0); MEAN CORPUSCULAR HEMOGLOBIN 32.5 pg (27.0-31.0); MEAN CORPUSCULAR HGB CONC 34.1 g/dL (32.0-36.0); MEAN CORPUSCULAR VOLUME 95.3 fL (81.0-99.0); MEAN PLATELET VOLUME 10.1 fL (7.9-10.8); RED BLOOD COUNT 3.63 10^6/uL (4.20-5.40); RED CELL DISTRIBUTION WIDTH 13.9 % (12.0-15.0); WHITE BLOOD COUNT 10.4 x10^3/uL (4.8-10.8)
[2023-09-04 18:45] LABS: ALBUMIN 3.5 g/dL (3.2-5.5); ALBUMIN/GLOBULIN RATIO 1.2 (1.0-2.2); BILIRUBIN,TOTAL 0.3 mg/dL (0.2-1.0); CALCIUM 9.1 mg/dL (8.5-10.3); CREATININE 0.5 mg/dL (0.6-1.3); POTASSIUM 3.6 mmol/L (3.5-4.5); TOTAL PROTEIN 6.4 g/dL (6.4-8.9)
== END 2023-09-04 10:02 | disposition home or self-care (01) ==
LOC: LAB.N 10:01
PROVIDERS: ATTEND Nurse Practitioner
DX: O26.649 Intrahepatic cholestasis of pregnancy, unspecified trimester (principal)
CPT/HCPCS: 36415; 80053; 82239; 82950; 85027

== ENCOUNTER 2023-09-11 12:31 | Outpatient (CLI) | payer OTHER ==
--- NOTE | 2023-09-11 16:15 | Ultrasound Report ---
PROCEDURE: OB Follow up INDICATIONS: ABN US OUTSIDE/PRIOR DATING DATA: Last menstrual period (LMP): . LMP-based estimated date of delivery (CHIOMA): . First dating scan (date and location): . Estimated date of delivery (CHIOMA) from first dating scan: . The below data below was generated using the CHIOMA of TECHNIQUE: Real-time scanning was performed of the fetus, with image documentation and biometric measurements. Endovaginal scanning: Not performed. COMPARISON: 08/04/2023. FINDINGS: General: A single living intrauterine gestation is present. Presentation: Vertex Placenta: Placental position is posterior, without previa. Amniotic fluid index: 11.7 cm, within normal limits for gestational age (19.6 percentile). heart rate: 141 beats per minute. Maternal cervical canal: 3.7 cm long; normal length is 2.5 cm or more. biometrics: Biparietal diameter: 7.34 cm, 29 weeks and 3 days (38th percentile) Head circumference: 27.9 cm, 30 weeks and 4 days (49th percentile) Abdominal circumference: 25.3 cm, 29 weeks and 3 days (45th percentile) Femur length: 5.54 cm, 29 weeks and 1 day (28th percentile) Estimated gestational age from initial scan: 29 weeks and 3 days Composite gestational age from present scan: 29 weeks and 5 days Estimated weight and percentile: 1403.5 g which correlates with the 39th percentile for gestati onal age Measurement variability in biometric dating: +/- 10 days from 12-20 weeks gestation, +/- 2 weeks from 20-30 weeks gestation, +/- 3 weeks at 30 weeks gestation or more. Other: Not applicable. IMPRESSION: 1. Single living intrauterine gestation with estimated sonographic gestational age of approximately 2 9 weeks and 5 days. Normal interval growth has occurred. 2. Previously seen decreasing pericardial effusion is no longer visualized on today's examination. 3. Four-quadrant LEXIE measures 11.7 cm. 4. Estimated weight of approximately 1403 g which correlates with the 39th percentile for gesta tional age. Reviewed by: Aly Huntley MD on 09/11/2023 4:13 PM PDT Approved by: Aly Huntley MD on 09/11/2023 4:13 PM PDT Station ID: [id number]
== END 2023-09-11 12:32 | disposition home or self-care (01) ==
LOC: DI 12:31
PROVIDERS: ATTEND Nurse Practitioner
DX: O28.3 Abnormal ultrasonic finding on antenatal screening of mother (principal); Z3A.29 29 weeks gestation of pregnancy

== ENCOUNTER 2023-10-28 08:00 | Outpatient (CLI) | payer OTHER | END 2023-10-28 23:59 | disposition home or self-care (01) | LOC: LAB.WC 08:00 | PROVIDERS: ATTEND Obstetrics & Gynecology | DX: Z36.85 Encounter for antenatal screening for Streptococcus B (principal) | CPT/HCPCS: 87797 ==

== ENCOUNTER 2023-11-10 14:56 | Outpatient (CLI) | payer OTHER ==
[2023-11-10 17:54] LABS: ALBUMIN 3.7 g/dL (3.2-5.5); ALBUMIN/GLOBULIN RATIO 1.2 (1.0-2.2); BILIRUBIN,TOTAL 0.7 mg/dL (0.2-1.0); CALCIUM 9.2 mg/dL (8.5-10.3); CREATININE 0.6 mg/dL (0.6-1.3); POTASSIUM 3.6 mmol/L (3.5-4.5); TOTAL PROTEIN 6.8 g/dL (6.4-8.9)
== END 2023-11-10 14:57 | disposition home or self-care (01) ==
LOC: LAB.N 14:56
PROVIDERS: ATTEND Obstetrics & Gynecology
DX: O26.893 Other specified pregnancy related conditions, third trimester (principal)
CPT/HCPCS: 36415; 80053; 82239

== ENCOUNTER 2023-11-10 21:37 | Outpatient (CLI) | payer OTHER ==
--- NOTE | 2023-11-11 01:39 | PROVIDER PROGRESS NOTE ---
- HPI Chief Complaint: Other (elevated LFTs at 38 wk gestation) Current : feels like she has cholestasis developing. had with first pregancy. had blood drawn with AST of 60 and asked to come in. original plan was to start induction tonight but then staffing did not allow that after patient arrived. pregnacy is otherwise uncomplicated. - Procedures OB Procedure Performed: NST Diagnosis/Indication for NST: Other (elevated AST) NST Procedure: NST Procedure see nursing note, did not carry over here properly in terms of times. pateint was on monitor for over an hour. baby category 1 with acels, normal baseline, no decels Service Date of procedure: 11/10/23 Findings: reactive NST, normal bps. - Plan Plan: Staffing did not allow [place]ateint to stay tonight[place] 8 [place] for care here. discussed that baby looks great now. very unlikley that condition would deteriorate in 8 hours. pateint agrees and decided to return in am for induction. Here tonight with FOB and her toddler. FOB agrees as well.
[2023-11-11 01:43] VITALS: BP 114/70; O2SAT 98
== END 2023-11-11 00:30 | disposition home or self-care (01) ==
LOC: WFO 21:37 → FBP 21:40 → WFO 11-11 00:30
PROVIDERS: ATTEND Obstetrics & Gynecology
DX: O26.643 Intrahepatic cholestasis of pregnancy, third trimester (principal); K83.1 Obstruction of bile duct; O26.893 Other specified pregnancy related conditions, third trimester; Z3A.38 38 weeks gestation of pregnancy
CPT/HCPCS: 36415; 80053; 82239